=== PATIENT | female | born 1965 | race Caucasian/White ===

== ENCOUNTER 2016-10-13 18:18 | Emergency (ER) | payer BC, OTHER ==
[~2016-10-13] VITALS: Ht 177.8 cm; Wt 108.0 kg
[2016-10-13 18:20] VITALS: BP 153/79; PULSE 82; RESP 18; TEMP 97.9; O2SAT 98
[2016-10-13] MEDS ORDERED: ASPIRIN 81 MG CHEW TAB PO ONE (19:00)
[2016-10-13] MEDS ORDERED: SODIUM CHLORIDE 0.9% FLUSH 5 ML FLUSH IVF PRN (19:00)
--- NOTE | 2016-10-13 19:01 | PD ---
HPI Chief Complaint: Chest Pain Time Seen by Provider: 19:00 Travel History International Travel<30 days: No Contact w/Intl Traveler<30days: No Traveled to known affect area: No History of Present Illness HPI 51-year-old female with a history of hypothyroidism, fibromyalgia, hyperlipidemia presents to the emergency department for evaluation of chest pain. Patient states that about 3 hours ago she felt a sharp midsternal chest pain lasting about 3 minutes with associated shortness of breath. States that since then she has had lightheadedness and feeling as though she is having some upper extremity weakness. She denies any fever, chills, nausea, vomiting, abdominal pain, diarrhea. Denies any history of heart disease or WA. States that she had a stress test performed over [address] Langley that was unremarkable. States that her father had sudden secondary to an [place] at age 59. No other complaints. PFSH Past Medical History Narrative Medical Fibromyalgia Hypothyroidism Hyperlipidemia Thyroid Disease: Yes ?: Not Social History Tobacco Use: No Allergies-Medications (Allergen,Severity, Reaction): Coded Allergies: Ciprofloxacin (Verified Allergy, Severe, 10/13/16) PATIENT STATES "ALLERGIC" Sulfa (Verified Allergy, Severe, 10/13/16) CONFIRM? Demerol (Verified Adverse Reaction, Unknown, VOMITING, 10/13/16) Reported Meds & Prescriptions Reported Meds & Active Scripts Active Reported Tizanidine (Tizanidine HCl) 4 Mg Cap 4 Mg PO HS Levothyroxine (Levothyroxine Sodium) 100 Mcg Tab 100 Mcg PO DAILY Cymbalta DR (Duloxetine HCl) 60 Mg Capdr 60 Mg PO DAILY Review of Systems Except as stated in HPI: all other systems reviewed are Neg Physical Exam Narrative GENERAL: Well-nourished and well-developed pleasant female patient in no acute distress who is nontoxic appearing. SKIN: Warm and dry. HEAD: Normocephalic and atraumatic. EYES: No injection, drainage, or hyphema noted. PERRLA. EOMI. ENT: No nasal drainage noted. Oropharynx is clear. NECK: Supple and the trachea is midline. CARDIOVASCULAR: Regular rate and rhythm. RESPIRATORY: Breath sounds are equal bilaterally with no accessory muscle use, wheezing, rhonchi, or crackles. GASTROINTESTINAL: Abdomen is soft, non-tender, and nondistended. MUSCULOSKELETAL: No obvious deformities, swelling, cyanosis, or ecchymosis is present throughout the upper and lower extremities. Patient has full range of motion without any signs of neurovascular compromise. NEUROLOGICAL: Awake, alert, and oriented. Normal speech and gait. Cranial nerves are grossly intact. Data Data Last Documented VS Vital Signs Date Time Temp Pulse Resp B/P Pulse Ox O2 Delivery O2 Flow Rate FiO2 10/13/16 19:12 16 10/13/16 19:12 78 Room Air 10/13/16 18:20 97.9 153/79 98 Orders Electrocardiogram (10/13/16 ) Ckmb (Isoenzyme) Profile (10/13/16 19:00) Complete Blood Count With Diff (10/13/16:00) Comprehensive Metabolic Panel (10/13/16:00) Prothrombin Time / Inr (Pt) (10/13/16 19:00) Act Partial Throm Time (Ptt) (10/13/16 19:00) Troponin I (10/13/16 19:00) Chest, Single Ap (10/13/16 19:00) Ecg Monitoring (10/13/16:00) Iv Access Insert/Monitor (10/13/16 19:00) Oximetry (10/13/16 19:00) Aspirin Chew (Aspirin Chew) (10/13/16 19:00) Sodium Chloride 0.9% Flush (Ns Flush) (10/13/16 19:00) Labs Laboratory Tests Test 10/13/16 19:10 White Blood Count 8.9 TH/MM3 Red Blood Count 5.13 MIL/MM3 Hemoglobin 14.1 GM/DL Hematocrit 41.3 % Mean Corpuscular Volume 80.6 FL Mean Corpuscular Hemoglobin 27.4 PG Mean Corpuscular Hemoglobin 34.0 % Concent Red Cell Distribution Width 14.1 % Platelet Count 257 TH/MM3 Mean Platelet Volume 7.7 FL Neutrophils (%) (Auto) 55.9 % Lymphocytes (%) (Auto) 35.4 % Monocytes (%) (Auto) 6.4 % Eosinophils (%) (Auto) 2.0 % Basophils (%) (Auto) 0.3 % Neutrophils # (Auto) 5.0 TH/MM3 Lymphocytes # (Auto) 3.2 TH/MM3 Monocytes # (Auto) 0.6 TH/MM3 Eosinophils # (Auto) 0.2 TH/MM3 Basophils # (Auto) 0.0 TH/MM3 CBC Comment DIFF FINAL Differential Comment Prothrombin Time 10.7 SEC Prothromb Time International 1.0 RATIO Ratio Activated Partial 29.9 SEC Thromboplast Time Sodium Level 139 MEQ/L Potassium Level 4.1 MEQ/L Chloride Level 104 MEQ/L Carbon Dioxide Level 28.7 MEQ/L Anion Gap 6 MEQ/L Blood Urea Nitrogen 12 MG/DL Creatinine 0.89 MG/DL Estimat Glomerular Filtration 67 ML/MIN Rate Random Glucose 83 MG/DL Calcium Level 8.8 MG/DL Total Bilirubin 0.4 MG/DL Aspartate Amino Transf 15 U/L (AST/SGOT) Alanine Aminotransferase 23 U/L (ALT/SGPT) Alkaline Phosphatase 90 U/L Total Creatine Kinase 64 U/L Troponin I LESS THAN 0.02 NG/ML Total Protein 7.5 GM/DL Albumin 3.5 GM/DL [facility] Medical Decision Making Medical Screen Exam Complete: Yes Emergency Medical Condition: Yes Differential Diagnosis Angina versus anxiety versus ACS versus pleurisy Narrative Course 51-year-old female presents to the emergency department for evaluation of chest pain. Patient is afebrile, vital signs are stable. Physical examination is unremarkable. IV access is obtained, labs were drawn and sent. EKG shows sinus rhythm with no acute ST elevations or depressions. CBC is unremarkable for any acute abnormalities. CMP is unremarkable. Troponin is less than 0.02. Coags are unremarkable. Chest x-ray shows artifactual mild hazy opacity over the left lung, negative for any acute abnormalities. Labs and imaging are unremarkable. Discussed all results with patient and family. I offered the patient admission to chest pain center but she declined and would like to follow up as an outpatient with her PCP. Discussed signs and symptoms of when to return to the emergency department. She is stable for discharge. Diagnosis Primary Impression: Chest pain Qualified Code: R07.9 - Chest pain, unspecified type Referrals: Primary Care Physician Patient Instructions: Chest Pain (ED), General Instructions Additional Instructions: Follow-up with your Primary Care Physician. Return to the ED for any acute worsening of symptoms such as shortness of breath , difficulty breathing, syncope. Med/Other Pt SpecificInfo: No Change to Meds Disposition: 01 DISCHARGE HOME Condition: Stable Opal Garcia Oct 13, 2016 19:00
[2016-10-13] MEDS ORDERED: TIZA4CAP3 PO (19:05)
[2016-10-13] MEDS ORDERED: CYMB60CA PO (19:05)
[2016-10-13] MEDS ORDERED: LEVO100T5 PO (19:05)
[2016-10-13 19:12] VITALS: RESP 16
[2016-10-13 19:38] LABS: APTT (PATIENT) 29.9 SEC (24.3-30.1); PROTHROMBIN TIME - PATIENT 10.7 SEC (9.8-11.6)
[2016-10-13 19:39] LABS: BASOPHIL % 0.3 % (0.0-2.0); EOSINOPHIL # 0.2 TH/MM3 (0-0.4); HEMATOCRIT 41.3 % (35.0-46.0); HEMO FLAGS DIFF FINAL; LYMPH % 35.4 % (9.0-44.0); LYMPHOCYTE # 3.2 TH/MM3 (1.0-4.8); MEAN CELL VOLUME 80.6 FL (80.0-100.0); MEAN CORPUSCULAR HEMOGLOBIN 27.4 PG (27.0-34.0); MONO % 6.4 % (0.0-8.0); NEUT % 55.9 % (16.0-70.0); PLATELET COUNT 257 TH/MM3 (150-450); RED BLOOD COUNT 5.13 MIL/MM3 (4.00-5.30); RED CELL DISTRIBUTION WIDTH 14.1 % (11.6-17.2); WHITE BLOOD COUNT 8.9 TH/MM3 (4.0-11.0)
[2016-10-13 19:46] LABS: ANION GAP 6 MEQ/L (5-15); AST (GOT) 15 U/L (15-37); BICARBONATE 28.7 MEQ/L (21.0-32.0); BLOOD UREA NITROGEN 12 MG/DL (7-18); CHLORIDE 104 MEQ/L (98-107); GLOMERULAR FILTRATION RATE 67 ML/MIN (>89); POTASSIUM 4.1 MEQ/L (3.5-5.1); SODIUM (NA) 139 MEQ/L (136-145)
[2016-10-13 19:51] LABS: ALKALINE PHOSPHATASE 90 U/L (45-117); ALT (GPT) 23 U/L (10-53); CREATINE KINASE 64 U/L (26-192); TOTAL BILIRUBIN ADULT 0.4 MG/DL (0.2-1.0)
--- NOTE | 2016-10-13 20:01 | RADRPT ---
EXAM DATE/TIME: 10/13/2016 19:03 [facility] COMPARISON: No previous studies available for comparison. INDICATIONS : Chest pain. MEDICAL HISTORY : None. SURGICAL HISTORY : None. ENCOUNTER: Initial ACUITY: 1 day PAIN SCORE: 6/10 LOCATION: Bilateral chest FINDINGS: A single view of the chest demonstrates the lungs to be symmetrically aerated without evidence of mas s, infiltrate or effusion. The cardiomediastinal contours are unremarkable. There is mild hazy opaci ty projected over left lung. There is overlying electrocardiogram leads. Osseous structures are intac t. CONCLUSION: Mild hazy opacity projected over the left lung which likely is artifactual. Hemant Mccallum MD on October 13, 2016 at 19:59 Board Certified Radiologist. This report was verified electronically.
--- NOTE | 2016-10-14 20:06 | EKG ---
Date Performed: 10/13/2016 Time Performed: 18:42:06 PTAGE: 51 years EKG: Sinus rhythm NORMAL ECG NO PREVIOUS TRACING Compared to prior tracing no significant change DOCTOR: Cecile Hernandez Interpretating Date/Time 10/14/2016 20:05:42
== END 2016-10-13 21:16 | disposition home or self-care (01) ==
LOC: NEPC 18:18
DX: R07.9 Chest pain, unspecified (principal); R06.02 Shortness of breath; M79.7 Fibromyalgia; E78.5 Hyperlipidemia, unspecified; E03.9 Hypothyroidism, unspecified; E07.9 Disorder of thyroid, unspecified
CPT/HCPCS: 71010; 80053; 82550; 84484; 85025; 85610; 85730; 93005